=== PATIENT | male | born 1990 | race Caucasian/White ===

== ENCOUNTER 2017-12-15 14:10 | Emergency (ER) | payer BC, OTHER ==
[2017-12-15 14:25] VITALS: BP 135/80; PULSE 66; TEMP 98.2; BMI 25.8
--- NOTE | 2017-12-15 15:13 | PDOC ---
History of Present Illness - General History Source: Patient <Anna Ponce - Last Filed: 12/15/17 16:24> - General History Source: Patient Exam Limitations: No Limitations - History of Present Illness Initial Comments: The patient is a 27 year old male with no known significant past medical history presents to the ER complaining of chest pain since couple of hours ago. The patient reports he was working out at the gym doing pull ups when he felt something in his chest. The patient reports pain upon movement of the chest but denies pain upon deep breathing. The patient denies any back pain or discomfort. 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 Social History: Reports hes a former smoker. Denies any use of recreational drugs or alcohol. 12/15/17 16:03 <Eliz Rodriguez - Last Filed: 12/15/17 16:30> - General Chief Complaint: Pain Stated Complaint: PULLED MUSCLE TO CHEST WALL WHILE WORKING OUT Time Seen by Provider: 12/15/17 14:16 Past History - Past Medical History COPD: Yes Other medical history: DENIES - Immunization History Td Vaccination: No TDAP Vaccination: Yes Immunization Up to Date: Yes - Suicide/Smoking/Psychosocial Hx Smoking Status: No Smoking History: Former smoker Years of Tobacco Use: 0 Have you smoked in the past 12 months: No Number of Cigarettes Smoked Daily: 30 If you are a former smoker, when did you quit?: 2017 Cigars Per Day: 0 Information on smoking cessation initiated: No 'Breaking Loose' booklet given: 11/05/15 Hx Alcohol Use: Yes (SOCIAL) Drug/Substance Use Hx: No Substance Use Type: Alcohol <Anna Ponce - Last Filed: 12/15/17 16:24> <Eliz Rodriguez - Last Filed: 12/15/17 16:30> - Past Medical History Allergies/Adverse Reactions: Allergies Allergy/AdvReac Type Severity Reaction Status Date / Time No Known Allergies Allergy Verified 12/15/17 14:12 Review of Systems - Review of Systems Able to Perform ROS?: Yes Comments:: CONSTITUTIONAL: Absent: fever, chills, diaphoresis, generalized weakness, malaise, loss of appetite HEENT: Absent: rhinorrhea, nasal congestion, throat pain, throat swelling, difficulty swallowing, mouth swelling, ear pain, eye pain, visual Changes CARDIOVASCULAR: (+) Chest pain Absent: syncope, palpitations, irregular heart rate, lightheadedness, peripheral edema RESPIRATORY: Absent: cough, shortness of breath, dyspnea with exertion, orthopnea, wheezing, stridor, hemoptysis GASTROINTESTINAL: Absent: abdominal pain, abdominal distension, nausea, vomiting, diarrhea, constipation, melena, hematochezia GENITOURINARY: Absent: dysuria, frequency, urgency, hesitancy, hematuria, flank pain, genital pain MUSCULOSKELETAL: Absent: myalgia, arthralgia, joint swelling SKIN: Absent: rash, itching, pallor HEMATOLOGIC/IMMUNOLOGIC: Absent: easy bleeding, easy bruising, lymphadenopathy, frequent infections ENDOCRINE: Absent: unexplained weight gain, unexplained weight loss, heat intolerance, cold intolerance NEUROLOGIC: Absent: headache, focal weakness or paresthesias, dizziness, unsteady gait, seizure, mental status changes, bladder or bowel incontinence PSYCHIATRIC: Absent: anxiety, depression, suicidal or homicidal ideation, hallucinations. 12/15/17 16:28 <Eliz Rodriguez - Last Filed: 12/15/17 16:30> *Physical Exam - Vital Signs Last Vital Signs Temp Pulse Resp BP Pulse Ox 98.2 F 66 16 135/80 99 12/15/17 14:12 12/15/17 14:12 12/15/17 14:12 12/15/17 14:12 12/15/17 14:12 <Anna Ponce - Last Filed: 12/15/17 16:24> - Vital Signs Last Vital Signs Temp Pulse Resp BP Pulse Ox 98.2 F 66 16 135/80 99 12/15/17 14:12 12/15/17 14:12 12/15/17 14:12 12/15/17 14:12 12/15/17 14:12 - Physical Exam Comments: GENERAL: Well developed, well nourished. Awake and alert. No acute distress. HEENT: Normocephalic, atraumatic. PERRLA, EOMI. No conjunctival pallor. Sclera are non- icteric. Moist mucous membranes. Oropharynx is clear. NECK: Supple. Full ROM. No JVD. Carotid pulses 2+ and symmetric, without bruits. No thyromegaly. No lymphadenopathy. CARDIOVASCULAR: Regular rate and rhythm. No murmurs, rubs, or gallops. Distal pulses are 2+ and symmetric. PULMONARY: No evidence of respiratory distress. Lungs clear to auscultation bilaterally. No wheezing, rales or rhonchi. ABDOMINAL: Soft. Non-tender. Non-distended. No rebound or guarding. No organomegaly. Normoactive bowel sounds. MUSCULOSKELETAL Normal range of motion at all joints. No bony deformities or tenderness. No CVA tenderness. EXTREMITIES: (+) Minimula chest pain upon pressure. No cyanosis. No clubbing. No edema. No calf tenderness. SKIN: Warm and dry. Normal capillary refill. No rashes. No jaundice. NEUROLOGICAL: Alert, awake, appropriate. Cranial nerves 2-12 intact. No deficits to light touch and temperature in face, upper extremities and lower extremities. No motor deficits in the in face, upper extremities and lower extremities. Normoreflexic in the upper and lower extremities. Normal speech. Toes are down- going bilaterally. Gait is normal without ataxia. PSYCHIATRIC: Cooperative. Good eye contact. Appropriate mood and affect. 12/15/17 16:30 <Eliz Rodriguez - Last Filed: 12/15/17 16:30> Medical Decision Making - Medical Decision Making Chest X-ray: Negative, normal chest x-ray. 12/15/17 16:28 <Eliz Rodriguez - Last Filed: 12/15/17 16:30> *DC/Admit/Observation/Transfer - Discharge Dispostion Admit: No <Anna Ponce - Last Filed: 12/15/17 16:24> - Attestations Scribe Attestion: 12/15/17 16:30 Documentation prepared by Eliz Rodriguez, acting as medical geneticist for Anna Ponce MD. <Eliz Rodriguez - Last Filed: 12/15/17 16:30> Diagnosis at time of Disposition: Contusion, chest wall Qualifiers: Encounter type: initial encounter Laterality: unspecified laterality Qualified Code(s): S20.219A - Contusion of unspecified front wall of thorax, initial encounter - Discharge Dispostion Disposition: HOME Condition at time of disposition: Stable - Patient Instructions Printed Discharge Instructions: DI for Atypical Chest Pain
== END 2017-12-15 16:27 | disposition home or self-care (01) ==
LOC: FER 14:10
DX: S20.219A Contusion of unspecified front wall of thorax, initial encounter (principal); Z87.891 Personal history of nicotine dependence; J44.9 Chronic obstructive pulmonary disease, unspecified; X58.XXXA Exposure to other specified factors, initial encounter; Y93.89 Activity, other specified; Y92.9 Unspecified place or not applicable
CPT/HCPCS: 71046-TC-FY; 99281-25